=== PATIENT | female | born 1940 | race Caucasian/White ===

== ENCOUNTER 2016-07-26 09:29 | Emergency (ER) | payer MEDICARE ==
--- NOTE | 2016-07-26 10:58 | UC ---
Complaint Female HPI - HPI Summary HPI Summary: The patient comes in today for: 1. Fever, increasing confusion, increasing instability on feet (history of untreated metastatic colon cancer): Onset: 2 days. Palliative/provocative: Sleep and pain medication helps with pain (headache). Quality: Penetrating pain. Region: Retrobulbar (left) Severity: 3/10 Time: Constant. Associated symptoms: She has a history of "stage 4 colon cancer" which was diagnosed in December 292013. She sees her primary care provider [place]. She sees an oncologist in [place]. But, she has not seen her oncologist in a year. Headache (left retrobulbar) with changes in vision. Patient has been seen by primary care provider who has had an MRI ordered ( to be done) today at [facility]. She has no dysuria, but the daughter (Dr. De Dios) states that the last time she had this sort of thing, there was a UTI. Night sweats: onset in the last two days. Temperature: None taken at home. 100.8 today at urgent care. Urination: "Normal" light yellow. She has a MRI scheduled in [facility] in [place] at about 5 PM today. The daughter (a physician) states that there has been a significant worsening of her symptoms recently. * - History Of Current Complaint Chief Complaint: UCGeneralIllness Stated Complaint: FREQUENT URINATION Time Seen by Provider: 07/26/16 10:48 Hx Obtained From: Patient, Family/Mechanic Insulator Hx Last Menstrual Period: "years ago." ?: No - Allergies/Home Medications Allergies/Adverse Reactions: Allergies Allergy/AdvReac Type Severity Reaction Status Date / Time No Known Allergies Allergy Verified 04/14/15 08:53 Home Medications: Home Medications Homeopathic Detox 07/26/16 [History] Lisinopril TAB* [Prinivil TAB 5 MG*] 1 tab PO DAILY 07/26/16 [History Confirmed 07/26/16] Parotid Med 07/26/16 [History] Progesterone Micronized [Progesterone] 07/26/16 [History] oxyCODONE/Acetamin 5/325 MG* [Percocet 5/325 TAB*] 0.5 tab PO 07/26/16 [History] PMH/Surg Hx/FS Hx/Imm Hx Previously Healthy: No - Progesterone/estrogen-menopause, Parotid supplement, left hip pain. Endocrine History Of: Denies: Diabetes, Thyroid Disease, Hyperthyroidism, Hypothyroidism, Dyslipidemia Cardiovascular History Of: Reports: Cardiac Disorders - "History of Q waves on anteroseptal leads, but no follow-up.", Hypertension Denies: Pacemaker/ICD, Myocardial Infarction, Congestive Heart Failure, Atrial Fibrillation, Deep Vein Thrombosis, Bleeding Disorders Respiratory History Of: Denies: COPD, Asthma, Bronchitis, Pneumonia, Pulmonary Embolism GI/ History Of: Denies: Gastroesophageal Reflux, Ulcer, Gastrointestinal Bleed, Gall Bladder Disease, Kidney Stones, Diverticulitis, Renal Disease, Urosepsis Neurological History Of: Denies: TIA, CVA, Dementia, Seizures, Migraine Cancer History Of: Reports: Colorectal Cancer Denies: Lung Cancer, Breast Cancer, Prostate Cancer, Cervical Cancer - Surgical History Surgical History: Yes Surgery Procedure, Year, and Place: Colon Resection. Parital Hysterectomy - Family History Known Family History: Negative: Cardiac Disease, Hypertension, Diabetes - Social History Occupation: Unemployed Alcohol Use: None Substance Use Type: Prescribed Smoking Status (MU): Never Smoked Tobacco Review of Systems Constitutional: Fever Skin: Negative Eyes: Negative ENT: Negative Respiratory: Negative Cardiovascular: Negative Gastrointestinal: Negative Genitourinary: Negative All Other Systems Reviewed And Are Negative: Yes Physical Exam Triage Information Reviewed: Yes Appearance: No Pain Distress, Thin Vital Signs: Initial Vital Signs Temp 100.6 F 07/26/16 10:25 Pulse 97 07/26/16 10:25 Resp 16 07/26/16 10:25 Pulse Ox 96 07/26/16 10:25 BP 146/70 Vital Signs Reviewed: Yes Eyes: Positive: Conjunctiva Clear. Negative: Discharge ENT: Positive: Hearing grossly normal. Negative: Pharyngeal erythema, Nasal congestion, Nasal drainage, TM bulging, TM red, Tonsillar swelling, Tonsillar exudate Dental: Positive: Other: - Dentures in place.. Negative: Gross Decay/Caries @, Dental Fracture @ Neck: Positive: Supple, Nontender, No Lymphadenopathy. Negative: Nuchal Rigidity Respiratory: Positive: Chest non-tender, Lungs clear, No respiratory distress, No accessory muscle use. Negative: Crackles, Wheezing Cardiovascular: Positive: RRR, No Murmur Abdomen Description: Positive: Nontender, Soft, Hepatomegaly - The liver edge is below the right anterior rib margin--nodular?. Negative: Distended, Guarding , Splenomegaly Musculoskeletal: Positive: Strength Intact, ROM Intact, No Edema Neurological: Positive: Alert, Muscle Tone Normal Psychological: Positive: Normal Response To Family, Age Appropriate Behavior. Negative: Consolable Skin: Negative: rashes, breakdown Diagnostics - Laboratory Diagnostic Studies Completed/Ordered: Urine screen (dipstick). Specific gravity : 1.000. WBC: 25. Nitrite: (-). Blood: (-). Protein: 30. Glucose: unable to read. Ketones: (-). Urobilinogen: (-). Bilirubin: (-). Complaint Female Dx - Differential Dx/Diagnosis Differential Diagnosis/HQI/PQRI: Urinary Tract Infection, Other - meningitis [employer] metastatic disease. Provider Diagnoses: Headache, stage 4 colon cancer, fever, increasing instability in ambulation, increasing confusion. Discharge - Discharge Plan Condition: Stable Disposition: AGAINST MEDICAL ADVICE Referrals: No Primary Care Phys,NOPCP [Primary Care Provider] - Additional Instructions: If you are not going to the local ER via ambulance, please go to the [facility] ER as soon as you can as you stated you wanted to do. Melanie at the [facility] ([place]--[phone]) called and my note will be faxed to [phone].
[2016-07-26 11:05] VITALS: BP 146/70
== END 2016-07-26 12:01 | disposition left against medical advice (07) ==
LOC: UCEAST 09:29
DX: R51 Headache (principal); R50.9 Fever, unspecified; R26.89 Other abnormalities of gait and mobility; R41.0 Disorientation, unspecified; C18.9 Malignant neoplasm of colon, unspecified
CPT/HCPCS: 81002; 87086; 99212; G0463

== ENCOUNTER 2016-12-15 14:07 | Inpatient (IN) | payer MEDICARE ==
[2016-12-15] MEDS ORDERED: NS 0.9% 1000 ML* 1,000 ML IV ONE (15:41)
[2016-12-15 15:51] LABS: Add Diff/Slide Review? Slide Review Added; Comments Flag Yes; Hematocrit 36 % (35-47); Hemoglobin 11.4 g/dl (12.0-16.0); Mean Corpuscular HGB Conc 32 g/dl (31-36); Mean Corpuscular Hemoglobin 24 pg (27-31); Mean Corpuscular Volume 74 fL (80-97); Mean Platelet Volume 8 um3 (7.4-10.4); Red Blood Count 4.81 10^6/ul (4.0-5.4); Red Cell Distribution Width 17 % (10.5-15); White Blood Count 19.3 10^3/ul (3.5-10.8)
[2016-12-15 16:05] LABS: Albumin 3.6 g/dL (3.2-5.2); BUN/Creatinine Ratio 22.2 (8-20); Calcium 10.3 mg/dL (8.6-10.3); EGFR African American 118.8 (>60); EGFR Non-African American 92.4 (>60); Potassium 4.5 mmol/L (3.5-5.0); Total Bilirubin 0.7 mg/dL (0.2-1.0); Total Protein 7.6 g/dL (6.4-8.9)
[2016-12-15 16:08] LABS: Troponin I 0.02 ng/mL (<0.04)
[2016-12-15] MEDS ORDERED: NS 0.9% 1000 ML* 300 ML IV ONE (16:25)
--- NOTE | 2016-12-15 16:51 | RAD ---
Indication: Confusion. CT of the brain was performed without IV contrast. Ventricular structures are midline. No midline shift is noted. The extraction spaces are unremarkable. There is no definite intracranial mass or hemorrhage. Central and cortical atrophy is noted. Periventricular lucency consistent with chronic ischemic White matter change is noted. Mastoid air cells and paranasal sinuses are otherwise unremarkable. IMPRESSION: There is no evidence of intracranial mass or hemorrhage. Chronic ischemic White matter change is noted.
[2016-12-15 17:07] LABS: Urine Bilirubin Negative (Negative); Urine Glucose Negative (Negative); Urine Nitrite Negative (Negative)
--- NOTE | 2016-12-15 17:24 | RAD ---
Indication: Confusion. 2 views of the chest are reviewed. No prior study is available for comparison. Heart is of normal size and configuration. Lung vega appear clear. IMPRESSION: Hyperinflated lung vega without definite evidence of pneumonia.
[2016-12-15] MEDS ORDERED: Iohexol 300* (CONTRAST) 10 ML SDV IV ONE (17:56)
--- NOTE | 2016-12-15 18:00 | ED ---
Cris Hicks [place], scribed for Keily Kahn MD on 12/15/16 at 1508 . Psychiatric Complaint - HPI Summary HPI Summary: Patient is a 76 y/o F who presents to the ED with a psychiatric complaint. She states that she feels unsafe in her home as her neighbor has weapons. Pt denies hx of depression. However, pts PMHx is significant for CA and she has been in hospice care for some time. Hospice care reports that pt is paranoid. She has no other complaints. - History Of Current Complaint Time Seen by Provider: 12/15/16 14:12 Hx Obtained From: Patient Hx Last Menstrual Period: "years ago." Onset/Duration: Gradual Onset, Still Present Timing: Constant Severity Initially: Moderate Severity Currently: Moderate Character: Fearful Aggravating Factor(s): Nothing Alleviating Factor(s): Nothing Associated Signs And Symptoms: Positive: Paranoid Behavior - Allergies/Home Medications Allergies/Adverse Reactions: Allergies Allergy/AdvReac Type Severity Reaction Status Date / Time No Known Allergies Allergy Verified 04/14/15 08:53 PMH/Surg Hx/FS Hx/Imm Hx Endocrine/Hematology History: Denies: Hx Diabetes, Hx Thyroid Disease Cardiovascular History: Reports: Hx Hypertension Denies: Hx Congestive Heart Failure, Hx Deep Vein Thrombosis, Hx Myocardial Infarction, Hx Pacemaker/ICD Respiratory History: Denies: Hx Asthma, Hx Chronic Obstructive Pulmonary Disease (COPD), Hx Lung Cancer, Hx Pneumonia, Hx Pulmonary Embolism GI History: Denies: Hx Gall Bladder Disease, Hx Gastrointestinal Bleed, Hx Ulcer, Hx Urosepsis History: Denies: Hx Kidney Stones, Hx Renal Disease Neurological History: Denies: Hx Dementia, Hx Migraine, Hx Seizures, Hx Transient Ischemic Attacks (TIA) - Cancer History Cancer Type, Location and Year: Hx colon W/ LIVER INVOLVEMENT - Surgical History Surgery Procedure, Year, and Place: Colon Resection. Parital Hysterectomy Infectious Disease History: No Infectious Disease History: Denies: Traveled Outside the [place] in Last 30 Days - Family History Known Family History: Negative: Cardiac Disease, Hypertension, Diabetes - Social History Alcohol Use: None Substance Use Type: Reports: None Smoking Status (MU): Never Smoked Tobacco Review of Systems Negative: Fever Positive: Other - Fearful. Paranoid. All Other Systems Reviewed And Are Negative: Yes Physical Exam Triage Information Reviewed: Yes Vital Signs On Initial Exam: Initial Vitals Temp Pulse Resp BP Pulse Ox 97.7 F 96 20 151/65 98 12/15/16 14:29 12/15/16 14:29 12/15/16 14:29 12/15/16 14:29 12/15/16 14:29 Vital Signs Reviewed: Yes Appearance: Positive: No Pain Distress, Cachectic Skin: Positive: Warm, Skin Color Reflects Adequate Perfusion, Dry Eyes: Positive: EOMI, ASTON Neck: Positive: Supple, Nontender Respiratory/Lung Sounds: Positive: Clear to Auscultation, Breath Sounds Present. Negative: Rales, Rhonchi, Wheezes Cardiovascular: Positive: RRR. Negative: Murmur, Rub Abdomen Description: Positive: Nontender, Soft. Negative: Distended, Guarding Musculoskeletal: Positive: Strength/ROM Intact Neurological: Positive: Sensory/Motor Intact, Alert, Oriented to Person Place, Time, CN Intact II-III Psychiatric: Positive: Other - Paranoid. Diagnostics - Vital Signs Vital Signs Temp Pulse Resp BP Pulse Ox 12/15/16 14:29 97.7 F 96 20 151/65 98 - Laboratory Lab Results: Lab Results 12/15/16 12/15/16 12/15/16 Range/Units 15:40 15:40 15:40 WBC 19.3 H (3.5-10.8) 10^3/ul RBC 4.81 (4.0-5.4) 10^6/ul Hgb 11.4 L (12.0-16.0) g/dl Hct 36 (35-47) % MCV 74 L (80-97) fL MCH 24 L (27-31) pg MCHC 32 (31-36) g/dl RDW 17 H (10.5-15) % Plt Count 448 (150-450) 10^3/ul MPV 8 (7.4-10.4) um3 Neut % (Auto) 82.6 (38-83) % Lymph % (Auto) 6.6 L (25-47) % [place] % (Auto) 9.7 H (1-9) % Eos % (Auto) 0.4 (0-6) % Baso % (Auto) 0.7 (0-2) % Absolute Neuts (auto) 15.9 H (1.5-7.7) 10^3/ul Absolute Lymphs (auto) 1.3 (1.0-4.8) 10^3/ul Absolute Monos (auto) 1.9 H (0-0.8) 10^3/ul Absolute Eos (auto) 0.1 (0-0.6) 10^3/ul Absolute Basos (auto) 0.1 (0-0.2) 10^3/ul Absolute Nucleated RBC 0 10^3/ul Nucleated RBC % 0 Sodium 128 L (133-145) mmol/L Potassium 4.5 (3.5-5.0) mmol/L Chloride 91 L (101-111) mmol/L Carbon Dioxide 26 (22-32) mmol/L Anion Gap 11 (2-11) mmol/L BUN 14 (6-24) mg/dL Creatinine 0.63 (0.51-0.95) mg/dL Est GFR ( Amer) 118.8 (>60) Est GFR (Non-Af Amer) 92.4 (>60) BUN/Creatinine Ratio 22.2 H (8-20) Glucose 82 (70-100) mg/dL Lactic Acid (0.5-2.0) mmol/L Calcium 10.3 (8.6-10.3) mg/dL Total Bilirubin 0.70 (0.2-1.0) mg/dL AST 74 H (13-39) U/L ALT 26 (7-52) U/L Alkaline Phosphatase 459 H (34-104) U/L Ammonia 54 H (16-53) mol/L Troponin I 0.02 (<0.04) ng/mL Total Protein 7.6 (6.4-8.9) g/dL Albumin 3.6 (3.2-5.2) g/dL Globulin 4.0 (2-4) g/dL Albumin/Globulin Ratio 0.9 L (1-3) TSH (0.34-5.60) mcIU/mL Urine Color Urine Appearance Urine pH (5-9) Ur Specific [place] (1.010-1.030) Urine Protein (Negative) Urine Ketones (Negative) Urine Blood (Negative) Urine Nitrate (Negative) Urine Bilirubin (Negative) Urine Urobilinogen (Negative) Ur Leukocyte Esterase (Negative) Urine Glucose (Negative) 12/15/16 12/15/16 12/15/16 Range/Units 15:40 15:40 16:50 WBC (3.5-10.8) 10^3/ul RBC (4.0-5.4) 10^6/ul Hgb (12.0-16.0) g/dl Hct (35-47) % MCV (80-97) fL MCH (27-31) pg MCHC (31-36) g/dl RDW (10.5-15) % Plt Count (150-450) 10^3/ul MPV (7.4-10.4) um3 Neut % (Auto) (38-83) % Lymph % (Auto) (25-47) % [place] % (Auto) (1-9) % Eos % (Auto) (0-6) % Baso % (Auto) (0-2) % Absolute Neuts (auto) (1.5-7.7) 10^3/ul Absolute Lymphs (auto) (1.0-4.8) 10^3/ul Absolute Monos (auto) (0-0.8) 10^3/ul Absolute Eos (auto) (0-0.6) 10^3/ul Absolute Basos (auto) (0-0.2) 10^3/ul Absolute Nucleated RBC 10^3/ul Nucleated RBC % Sodium (133-145) mmol/L Potassium (3.5-5.0) mmol/L Chloride (101-111) mmol/L Carbon Dioxide (22-32) mmol/L Anion Gap (2-11) mmol/L BUN (6-24) mg/dL Creatinine (0.51-0.95) mg/dL Est GFR ( Amer) (>60) Est GFR (Non-Af Amer) (>60) BUN/Creatinine Ratio (8-20) Glucose (70-100) mg/dL Lactic Acid 1.8 (0.5-2.0) mmol/L Calcium (8.6-10.3) mg/dL Total Bilirubin (0.2-1.0) mg/dL AST (13-39) U/L ALT (7-52) U/L Alkaline Phosphatase (34-104) U/L Ammonia (16-53) mol/L Troponin I (<0.04) ng/mL Total Protein (6.4-8.9) g/dL Albumin (3.2-5.2) g/dL Globulin (2-4) g/dL Albumin/Globulin Ratio (1-3) TSH 7.69 H (0.34-5.60) mcIU/mL Urine Color Yellow Urine Appearance Cloudy Urine pH 7.0 (5-9) Ur Specific [place] 1.010 (1.010-1.030) Urine Protein Negative (Negative) Urine Ketones Trace H (Negative) Urine Blood Negative (Negative) Urine Nitrate Negative (Negative) Urine Bilirubin Negative (Negative) Urine Urobilinogen Negative (Negative) Ur Leukocyte Esterase Negative (Negative) Urine Glucose Negative (Negative) Result Diagrams: 12/15/16 15:40 12/15/16 15:40 Lab Statement: Any lab studies that have been ordered have been reviewed, and results considered in the medical decision making process. - Radiology CXR Radiology Interpretation Completed By: Radiologist - IMPRESSION: Hyperinflated lung vega without definite evidence of pneumonia. - CT BRAIN CT Interpretation Completed By: Radiologist - IMPRESSION: There is no evidence of intracranial mass or hemorrhage. Chronic ischemic White matter change is noted. - Additional Comments Diagnostic Additional Comments: Trop 1: 0.02 Ur Leukocytes Esteras: negative Urine Blood: negative Re-Evaluation - Re-Evaluation First Eval Re-Evaluation Time: 15:15 Comment: Discussed case. Course/Dx - Course Course Of Treatment: 76 yo female with pre occupation that neighbor is a drug dealer with ammunition stored in his home. Pt has history of colon ca metastatic to liver. Her wbc is 19k, but urine and cxr are neg,she will be admitted by medicine, case discussed with Dr. Barrera. - Differential Dx/Clinical Impression Provider Diagnosis: Psychosis - Physician Notifications Discussed Care Of Patient With: Lolis Barrera Time Discussed With Above Provider: 15:05 Instructed by Provider To: Admit As Inpatient Admit/Transition Orders Completed By ED Provider: Yes Discharge - Discharge Plan Condition: Stable Disposition: ADMITTED TO [facility] Referrals: Non Staff,Doctor [Primary Care Provider] - The documentation as recorded by the Cris bowens [place] accurately reflects the service I personally performed and the decisions made by me, Keily Kahn MD.
--- NOTE | 2016-12-15 18:51 | RAD ---
Indication: Paranoid behavior. Evaluate for brain metastasis, history of colon carcinoma. Contrast: Administered 74.9 ml of OMNIPAQUE 300 mgi/ml CT of the brain was performed after IV contrast administration. There is no evidence of abnormally enhancing lesions. No leptomeningeal enhancement is noted. Prominent vasculature is noted. IMPRESSION: No evidence of abnormally enhancing lesions are identified.
[2016-12-16] MEDS: NS 0.9% 1000 ML* 1,000 ML IV SCH ×2 (04:40→16:23)
[2016-12-16 05:41] LABS: Hematocrit 34 % (35-47); Hemoglobin 10.8 g/dl (12.0-16.0); Mean Corpuscular HGB Conc 32 g/dl (31-36); Mean Corpuscular Hemoglobin 24 pg (27-31); Mean Platelet Volume 8 um3 (7.4-10.4); Red Blood Count 4.54 10^6/ul (4.0-5.4); Red Cell Distribution Width 17 % (10.5-15); White Blood Count 18.8 10^3/ul (3.5-10.8)
[2016-12-16 05:44] LABS: Add Diff/Slide Review? Slide Review Added; Comments Flag Yes; Mean Corpuscular Volume 74 fL (80-97)
[2016-12-16 05:54] LABS: Albumin 3.4 g/dL (3.2-5.2); BUN/Creatinine Ratio 21.9 (8-20); Calcium 9.9 mg/dL (8.6-10.3); EGFR African American 116.7 (>60); EGFR Non-African American 90.7 (>60); Globulin 3.7 g/dL (2-4); Potassium 4.4 mmol/L (3.5-5.0); Total Bilirubin 0.5 mg/dL (0.2-1.0); Total Protein 7.1 g/dL (6.4-8.9)
[2016-12-16] MEDS ORDERED: Iohexol 300* (CONTRAST) 10 ML SDV IV ONE (08:13)
--- NOTE | 2016-12-16 09:56 | RAD ---
Indication: Abnormal liver enzymes. Contrast: Administered 52.2 ml of OMNIPAQUE 300 mg/ml CT of the abdomen and pelvis was performed without oral or IV contrast administration. Coronal and sagittal reconstructed images were obtained. The lung bases demonstrates multiple nodules in the lung bases consistent with pulmonary metastasis. The heart demonstrates no pericardial effusion. The liver is enlarged. Multiple low density lesions are noted in the liver. The portal veins are not well demonstrated and the possibility of compression or thrombosis of the right portal vein is not excluded. Ascites is present. The spleen is normal in size. Pancreas demonstrates no mass or pancreatic duct dilatation. No adrenal lesions are noted. There is excretion of the right kidney. The left kidney demonstrates hydronephrosis. There is atrophy of the left kidney and this may be chronic process. No obvious calculi is noted. Small bowel demonstrates no abnormal dilatation. The colon is filled with stool. The urinary bladder is otherwise unremarkable. Moderate amount of ascites and anasarca is noted. There is suggestion of multiple peritoneal metastases noted with nodularity in the left lower quadrant just below the liver. IMPRESSION: Multiple pulmonary nodules consistent with pulmonary metastatic disease. This is predominantly in the right base. Hepatomegaly with multiple innumerable low density lesions in the liver consistent with metastatic disease. Right portal vein is not visualized. Possibility of right portal vein compression or thrombus is not excluded. Multiple peritoneal metastasis are noted with multiple omental nodules. Diffuse edema is noted with small amount of free fluid in the pelvis. There is left hydronephrosis. Etiology is unclear. There is atrophic left kidney suggesting that this may be chronic.
--- NOTE | 2016-12-16 14:32 | PN ---
Subjective Date of Service: 12/16/16 Interval History: Patient seen and examined at bedside. Denies fever, chills, shortness of breath , chest discomfort, N/V/D. According to the patient she feels that her daughter's significant other has been building a milita to come and attack her. She reports that she was trying to "hid in the oven" because she was unsure where else she could hid. The patient also thinks that her daughter just returned from delivering drugs out of town with her significant other. According to the patient's daughter anders there has been long standing issues with her mother trusting the significant others in her life, but it has gotten worse recently. Family History: Unchanged from Admission Social History: Unchanged from Admission Past Medical History: Unchanged from Admission Objective Active Medications: Sodium Chloride (Ns 0.9% 1000 Ml*) 1,000 mls @ 100 mls/hr IV PER RATE AVERY Vital Signs 12/16/16 12/16/16 12/16/16 05:26 07:36 08:00 Temperature 97.8 F 97.8 F Pulse Rate 99 97 Respiratory 16 16 16 Rate Blood Pressure 155/73 155/68 (mmHg) O2 Sat by Pulse 96 97 Oximetry Oxygen Devices in Use Now: None Appearance: NAD, sitting up in a chair Eyes: No Scleral Icterus Neck: NL Appearance and Movements; NL JVP Respiratory: Symmetrical Chest Expansion and Respiratory Effort, Clear to Auscultation Cardiovascular: NL Sounds; No Murmurs; No JVD, RRR Abdominal: NL Sounds; No Tenderness; No Distention Extremities: No Edema Skin: No Rash or Ulcers Neurological: Alert and Oriented x 3, NL Muscle Strength and Tone, - - Paranoid Lines/Tubes/Other Access: Clean, Dry and Intact Peripheral IV - site benign Nutrition: Taking PO's Result Diagrams: 12/16/16 05:19 12/16/16 05:19 Assess/Plan/Problems-Billing Assessment: Ms. De Dios is a 76 yo female with PMH significant for metastatic colon cancer who presented to the emergency room for evaluation of paranoia. - Patient Problems (1) Altered mental status Code(s): R41.82 - ALTERED MENTAL STATUS, UNSPECIFIED SNOMED Code(s): 679461171 Comment: - ? Psychosis - No mets seen on brain CT - Psychiatric consult pending (2) Colon cancer Comment: - with liver, lung and peritoneal mets - Pt was on hospice services until presentation to the hospital - Social work consult (3) DVT prophylaxis Code(s): XOZ1294 - SNOMED Code(s): 503887895 Comment: - Pt refusing medications, encourage ambulation (4) DNR (do not resuscitate) Status and Disposition: OBV. Psychiatric evaluation pending. Discharge when medically stable. TIME SPENT: A total of 60 minutes was spent with the patient and daughter Anders discussing her history and plan of care.
--- NOTE | 2016-12-16 14:33 | HP ---
HISTORY AND PHYSICAL: DATE OF ADMISSION: 12/16/16 CHIEF COMPLAINT: Daughter was concerned about her mother's mental status. HISTORY OF PRESENT ILLNESS: The patient is a 76-year-old woman with metastatic colon cancer who presents to [facility] after her daughter wanted her to be seen because of concerns about her mother's mental status. Apparently , the mother thinks the neighbor has been harboring weapons and is out to get her, but she will not confide that to us at this time. She does note that she has a history of colon cancer with metastasis and had a hemicolectomy done approximately 2 years ago for same. She refused all chemotherapy and only wants alternative holistic therapies. The patient admits she has pain but thinks it is getting better with holistic therapies. PAST MEDICAL HISTORY: The patient does have a past medical history significant for obstructive sigmoid colon resection, colon cancer with metastasis to the liver. She denies any other medical history. CURRENT MEDICATIONS: Currently include, 1. Percocet 5/325 every 4 hours which she does not take. 2. Magnesium 1 dose daily. 3. Sodium bicarbonate daily. ALLERGIES: She has no known drug allergies. FAMILY HISTORY: Reviewed and noncontributory. SOCIAL HISTORY: No tobacco, alcohol or recreational drug use. She does not work. She is . Her daughters Isabella De Dios and Pamela De Dios are her healthcare proxies. REVIEW OF SYSTEMS: A 14-point review of systems was completed with the patient. All pertinent positives and negatives are in the history of present illness, otherwise it is negative. PHYSICAL EXAMINATION GENERAL: A pleasant woman lying in bed, in no acute distress. VITAL SIGNS: Temperature 97.4 degrees, heart rate 103 beats per minute, respiratory rate 16 breaths per minute, pulse ox 97%, blood pressure 135/63. HEENT: Normocephalic, atraumatic. Pupils are equal, round and reactive to light. Moist mucous membranes. NECK: Supple. No JVD, bruits, palpable thyroid or lymphadenopathy. CHEST: Clear to auscultation and percussion bilaterally. CARDIOVASCULAR: S1, S2 appreciated. ABDOMINAL EXAM: Positive bowel sounds in all 4 quadrants. Soft, nontender, nondistended. EXTREMITIES: No cyanosis, clubbing or edema. +2 peripheral pulses bilaterally. NEURO: Alert and oriented x3. Moves all extremities. SKIN: No rashes or abnormalities. DIAGNOSTIC STUDIES/LAB DATA: White count 19.3, hemoglobin , hematocrit 36 , platelets 448. Sodium is 128, potassium 4.5, chloride 91, CO2 26, BUN 14, creatinine 0.63, glucose is 82. Alk phos 459, ammonia level 54, AST 34, ALT 26. Urinalysis is unremarkable. Brain CT shows no evidence of abnormalities or enhancing lesions that are identified, no ischemic intracranial mass or hemorrhage. Chest x-ray was interpreted by Radiology as hyperinflated lung vega without definite of pneumonia. ASSESSMENT AND PLAN: 1. Questionable mental status changes or psychosis. Patient was going to go to mental [facility] for this, but there were concerns about the ability to care for her other medical needs. Therefore, the patient is being admitted to Medical with a psychiatric consult. She does not have any evidence of brain mets. It is unknown except at this point how long she has had these paranoid thoughts. We will get more information when the daughter comes in and proceed accordingly. 2. Colon cancer with mets. The patient was apparently on hospice and took herself off. This needs to be looked into further. I will also get a social work consult. 3. FEN. Regular diet. 4. DVT prophylaxis on hold as the patient refuses medications. 5. The patient is a full code. This needs to be followed up on, however, since she was on hospice. TIME SPENT: Over 75 minutes was spent on this H and P, more than 40 minutes of which was spent in direct [id number] contact with the patient in evaluation, physical exam, and counseling and coordination of care. CC: Dr. Nesha Phipps [place] [id number]/[facility] #: [id number] [facility]ENTER[facility]ay
[2016-12-17] MEDS: NS 0.9% 1000 ML* 1,000 ML IV SCH ×2 (02:36→12:26)
[2016-12-17 06:22] LABS: Hematocrit 34 % (35-47); Hemoglobin 10.8 g/dl (12.0-16.0); Mean Corpuscular HGB Conc 32 g/dl (31-36); Mean Corpuscular Hemoglobin 24 pg (27-31); Mean Corpuscular Volume 75 fL (80-97); Mean Platelet Volume 8 um3 (7.4-10.4); Red Cell Distribution Width 17 % (10.5-15); White Blood Count 20.2 10^3/ul (3.5-10.8)
[2016-12-17 06:53] LABS: BUN/Creatinine Ratio 15.5 (8-20); Calcium 9.3 mg/dL (8.6-10.3); EGFR African American 130.7 (>60); EGFR Non-African American 101.6 (>60); Potassium 3.7 mmol/L (3.5-5.0)
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
--- NOTE | 2016-12-17 20:19 | PN ---
Subjective Date of Service: 12/17/16 Interval History: Patient seen and examined at bedside. Pt states that she feels well today but is disappointed that no one believes what she is saying about the threats to her. She also states that she understands that because of that she will need to "be committed". Denies fever, chills, shortness of breath, chest discomfort, N/V /D. Pt states that she feels as if she is in an acidosis and would like to return to an alkaline state and would like to continue to take her sodium bicab and magnesium that assists with that. Family History: Unchanged from Admission Social History: Unchanged from Admission Past Medical History: Unchanged from Admission Objective Active Medications: Magnesium Oxide (Magox 400 Tab*) 400 mg PO DAILY [facility] Vital Signs 12/16/16 12/17/16 12/17/16 23:34 03:51 07:24 Temperature 98.7 F 98.7 F 98.1 F Pulse Rate 94 95 88 Respiratory 16 16 16 Rate Blood Pressure 144/61 154/74 145/62 (mmHg) O2 Sat by Pulse 93 91 95 Oximetry 12/17/16 16:23 Temperature 98.2 F Pulse Rate 96 Respiratory 16 Rate Blood Pressure 156/75 (mmHg) O2 Sat by Pulse 96 Oximetry Oxygen Devices in Use Now: None Appearance: NAD, sitting up in a chair Ears/Nose/Mouth/Throat: Mucous Membranes Moist Respiratory: Symmetrical Chest Expansion and Respiratory Effort, Clear to Auscultation Cardiovascular: NL Sounds; No Murmurs; No JVD, RRR Abdominal: NL Sounds; No Tenderness; No Distention Extremities: No Edema Skin: No Rash or Ulcers Neurological: Alert and Oriented x 3, NL Muscle Strength and Tone Lines/Tubes/Other Access: Clean, Dry and Intact Peripheral IV - site benign Nutrition: Taking PO's Result Diagrams: 12/17/16 05:40 12/17/16 05:40 Additional Lab and Data: Assess/Plan/Problems-Billing Assessment: Ms. De Dios is a 76 yo female with PMH significant for metastatic colon cancer who presented to the emergency room for evaluation of paranoia. - Patient Problems (1) Altered mental status Code(s): R41.82 - ALTERED MENTAL STATUS, UNSPECIFIED SNOMED Code(s): 065236531 Comment: - ? Psychosis - No mets seen on brain CT - Psychiatric consult, recommend admission to mental health (2) Colon cancer Comment: - with liver, lung and peritoneal mets - Pt was on hospice services until presentation to the hospital - Social work consult (3) DVT prophylaxis Code(s): DEJ3808 - SNOMED Code(s): 943755936 Comment: - Pt refusing medications, encourage ambulation (4) DNR (do not resuscitate) Status and Disposition: OBV to Inpatient. Plan for discharge to behavioral health (either here or another facility) once arrangements have been made. Stable for discharge to behavioral health.
[2016-12-18] MEDS: Magnesium Oxide TAB* 400 MG PO SCH (08:32)
--- NOTE | 2016-12-18 10:14 | PN ---
Subjective Date of Service: 12/18/16 Family History: Unchanged from Admission Social History: Unchanged from Admission Past Medical History: Unchanged from Admission Objective Active Medications: Magnesium Oxide (Magox 400 Tab*) 400 mg PO DAILY [facility] Vital Signs 12/17/16 12/18/16 23:35 07:56 Temperature 98.0 F 97.7 F Pulse Rate 101 104 Respiratory 16 16 Rate Blood Pressure 127/103 168/75 (mmHg) O2 Sat by Pulse 97 98 Oximetry Oxygen Devices in Use Now: None Appearance: Female sitting up in chair in NAD Eyes: No Scleral Icterus Ears/Nose/Mouth/Throat: Mucous Membranes Moist Neck: NL Appearance and Movements; NL JVP Respiratory: Symmetrical Chest Expansion and Respiratory Effort, Clear to Auscultation Cardiovascular: NL Sounds; No Murmurs; No JVD, No Edema Abdominal: NL Sounds; No Tenderness; No Distention Lymphatic: No Cervical Adenopathy Extremities: No Edema Skin: No Rash or Ulcers Neurological: Alert and Oriented x 3, NL Muscle Strength and Tone Nutrition: Taking PO's Result Diagrams: 12/17/16 05:40 12/17/16 05:40 Additional Lab and Data: Assess/Plan/Problems-Billing Assessment: Ms. De Dios is a 76 yo female with PMH significant for metastatic colon cancer who presented to the emergency room for evaluation of paranoia. - Patient Problems (1) Altered mental status Comment: ? Psychosis. Leukocytosis unchanged no evidence of infection, ? if related to cancer. No mets seen on brain CT. Psychiatric consult, recommend admission to mental health. (2) Colon cancer Comment: With liver, lung and peritoneal mets. Pt was on hospice services until presentation to the hospital. Plan for MHU admission and to likely return home with hospice. (3) DNR (do not resuscitate) Comment: (4) DVT prophylaxis Comment: Pt refusing medications, encourage ambulation Status and Disposition: Inpatient. Stable for discharge to behavioral health.
--- NOTE | 2016-12-18 16:23 | CONSULT ---
Identification - Patient Identification Reason for Psychiatric Consultation: Incapacitating Symptoms -: Patient is a 76 year old, F admitted on 12/17/16. - MHU Identification Employment Status: Disabled Hx Psychiatric Hospitalization: No History - Objective HPI: The patient remains paranoid and suspicious, as evidenced by her refusal today to answer any questions related to her situation, or where she will go from here. She continues to meet criteria for inpatient psychiatric hospitalization , however, it is my understanding that the BSU here at [facility] is [id number] for her managed Medicare plan. I spoke with her daughter, Melanie, who shares the family's preference that she not be transferred out of town because her end- of-life status. Administrative staff have been working on whether the patient could be re-enrolled in Hospice and have that entity support inpatient hospitalization on the BSU. The patient denies SI or HI. Exam Appearance: Thin Framed Hygiene: Normal Grooming: Well Kept Psychomotor Activities: Normal Exhibits Abnormal Movement: No Attitude and Relatedness: Psychotically Related Eye Contact: Good - Speech Quality: Unpressured Latencies: Normal Quantity: Terse Patient's Decription of Mood: "Fine" Observed Affect: Tense Affect Consistent with: Dysphoria Patient's Thought Process: Circumstantial Thought Content: Yes Paranoid Ideation, No Passive Wish, No Suicidal Planning, No Homicidal Ideation Experiencing Hallucinations: No, Sensorium is Clear Type of Hallucinations: Visual: No, Auditory: No, Command: No Level of Consciousness: Alert Orientation: Yes Intact, Yes Orientated to Time, Yes Orientated to Place, Yes Orientated to Person Impulse Control: Poor Insight and Judgement: Impaired Impression - Impression Clinical Impression: 76 y.o. , white female with a history of affective problems and comorbid end-stage colon cancer hospitalized on the medical unit due to several weeks of worsening paranoia and inability to keep herself safe in the community. Inpatient DSM-IV Dx: Unspecified Psychotic DO Merits Inpatient Hospitalization: Yes Plan - Treatment Plan Treatment Plan: The patient is refusing antipsychotic medication and disagrees with this clinician's assertion that she has mental illness. She remains appropriate for inpatient psychiatric stabilization, however, we are sympathetic to the end-of- life, palliative dimensions of her case and would like to accommodate the family 's preferences to see her receive care locally. We await administrative considerations related to insurance coverage and patient/family preference and will revisit the case tomorrow (12/19). Continued Medication Management: Consider Medication Medications: Current Medications Magnesium Oxide (Magox 400 Tab*) 400 mg PO DAILY [facility] Last Admin: 12/18/16 08:32 Dose: 400 mg - Discharge Plan Discharge Plan: Inpatient Hospitalization
[2016-12-18] MEDS: amLODIPine TAB* 5 MG ONE ×2 (21:29→21:36)
[2016-12-18] MEDS: amLODIPine TAB* 5 MG PO SCH (21:36)
[2016-12-19] MEDS: Magnesium Oxide TAB* 400 MG PO SCH (07:45)
[2016-12-19] MEDS: amLODIPine TAB* 5 MG PO SCH (07:45)
[2016-12-19] MEDS ORDERED: Morphine ORAL CONCENTRATE* 5 MG/0.25 ML ORAL.SYRIN SL PRN ×3 (10:50→21:00)
--- NOTE | 2016-12-19 13:31 | PN ---
Subjective Date of Service: 12/19/16 Interval History: Ms. De Dios reports abdominal pain but does not want any analgesics. She denies other complaint. Family History: Unchanged from Admission Social History: Unchanged from Admission Past Medical History: Unchanged from Admission Objective Active Medications: Amlodipine Besylate (Norvasc Tab*) 5 mg PO DAILY [facility] Last Admin: 12/19/16 07:45 Dose: Not Given Magnesium Oxide (Magox 400 Tab*) 400 mg PO DAILY [facility] Last Admin: 12/19/16 07:45 Dose: Not Given Morphine Sulfate (Morphine Oral Concentrate*) 2 mg SL Q2H PRN PRN Reason: PAIN Vital Signs 12/18/16 12/18/16 12/18/16 15:30 19:30 21:37 Temperature 98.2 F 98.0 F Pulse Rate 110 99 Respiratory 16 16 16 Rate Blood Pressure 165/79 170/83 (mmHg) O2 Sat by Pulse 98 99 Oximetry 12/18/16 12/19/16 12/19/16 23:24 07:28 08:00 Temperature 98.0 F 98.0 F Pulse Rate 104 94 Respiratory 16 17 16 Rate Blood Pressure 143/70 151/73 (mmHg) O2 Sat by Pulse 96 96 Oximetry 12/19/16 11:21 Temperature 97.6 F Pulse Rate 97 Respiratory 17 Rate Blood Pressure 146/70 (mmHg) O2 Sat by Pulse 93 Oximetry Oxygen Devices in Use Now: None Appearance: Female sitting up in bed in NAD Eyes: No Scleral Icterus Ears/Nose/Mouth/Throat: Mucous Membranes Moist Neck: Trachea Midline Respiratory: Symmetrical Chest Expansion and Respiratory Effort, Clear to Auscultation Cardiovascular: NL Sounds; No Murmurs; No JVD, No Edema Abdominal: - - Pt c/o lower abdominal pain Lymphatic: No Cervical Adenopathy Extremities: No Edema Skin: No Rash or Ulcers Neurological: Alert and Oriented x 3, NL Muscle Strength and Tone Nutrition: Taking PO's Result Diagrams: 12/17/16 05:40 12/17/16 05:40 Additional Lab and Data: Assess/Plan/Problems-Billing Assessment: Ms. De Dios is a 76 yo female with PMH significant for metastatic colon cancer who presented to the emergency room for evaluation of paranoia. - Patient Problems (1) Altered mental status Comment: ? Psychosis. Leukocytosis unchanged no evidence of infection, ? if related to cancer. No mets seen on brain CT. Psychiatric consult, recommend admission to mental health. (2) Colon cancer Comment: With liver, lung and peritoneal mets. Pt was on hospice services until presentation to the hospital. Palliative care team to discuss disposition plan with family again today, MHU vs home. (3) DNR (do not resuscitate) (4) DVT prophylaxis Comment: Pt refusing medications, encourage ambulation Status and Disposition: Inpatient. Awaiting disposition plan, patient may go to MHU.
--- NOTE | 2016-12-19 14:22 | CONS ---
CC: Nesha Phipps M.D.; Alley Palacios NP. * PALLIATIVE CARE CONSULTATION: DATE OF CONSULT: 12/19/16 PRIMARY CARE PHYSICIAN: Nesha Phipps M.D. REFERRING PHYSICIAN: Alley Palacios NP. HOSPITAL COURSE: This is a 76-year-old female with a past medical history of metastatic colon cancer with metastasis known to the lung, liver and peritoneum , who presented to the emergency room on the with concern for the mother's mental status. The daughter, Melanie, brought the patient into the emergency room as there was concern for her mental status and behavior. My history is obtained from the notes, the patient and the other daughter, Isabella who lives in [place]. The patient of note has a significant history of mental health disorder with anxiety, depression, suicidal attempts, who had been at home with hospice, but had been a challenging situation and who had worsened over the past several days prior to admission. The daughter states that she did not want hospice coming into the house regularly. She would put a lock on the door and lock out the daughters, so they could not come in. She did not want more help with meals and care for her. She refused all chemotherapy and wanted a holistic treatment. On my encounter, the patient states she does have 4/10 abdominal pain. She states she does not take medicine for this, but she manages to herself; when asked how, she says on a [employer] level. I asked if she knew where she was, she did not. I asked if she knew why she was here, she did not. She denies any nausea. No shortness of breath. She states she has had a very poor appetite and not moving her bowels regularly. The daughter, Isabella, has been concerned about her care at home in the setting of her mental health and her end-stage colon cancer. Because of her paranoia, Psychiatry was consulted, who felt that she was having increasing psychotic behavior and felt she was unable to care for herself and was not safe to be discharged to home. Psychiatry felt that she would benefit from a psychiatric hospitalization and start her on medication for her paranoia. The patient has been refusing olanzapine that was prescribed by Psychiatry on the hospital floor. My concern is that the patient lacks capacity to make medical decisions for herself that she has end-stage colon cancer with metastasis, with the pain and would not benefit from admission to the mental health floor. I spoke my concerns with Isabella regarding a safe discharge plan to either a residential with hospice or the residence with hospice and to work with her. The patient to discuss that it is not medication, that it may be considered a supplement to help with her pain if she is presenting with significant amount of pain as she clearly does not have the capacity to manage her pain appropriately. The daughter was agreeable to this plan. She was going to call her sister Melanie to confirm that this was a reasonable plan for her care. We also discussed the MOLST at length and she has confirmed that she is a DNR/DNI with no further rehospitalization. Otherwise, remaining review of systems is limited, but negative. PAST MEDICAL HISTORY: 1. Metastatic colon cancer with metastasis to the lung, liver, peritoneal, and omentum. 2. Question of a right portal vein thrombus. 3. History of a partial bowel resection. 4. Anxiety, depression with history of suicidal attempts in the past. INPATIENT MEDICATIONS: 1. Magnesium 400 mg daily. 2. Amlodipine 5 mg daily. The patient has refused taking these medications. ALLERGIES: No known drug allergies. FAMILY HISTORY: Reviewed and noncontributory. SOCIAL HISTORY: The patient was living at home. Her house is attached to her daughter's house Melanie. She was ambulating up until about a week ago and now is requiring ambulation with assistance. No history of tobacco, alcohol, or illicit drug use. Her MOLST form prior to my consultation was a full code. Her healthcare proxies are her daughters, Isabella De Dios, and Melanie De Dios. Phone number for Isabella is [phone], and for Melanie is [phone]. REVIEW OF SYSTEMS: As mentioned in the HPI. PHYSICAL EXAM: Vitals: Temp 98, pulse rate 94, respiratory rate 17, oxygen saturation 96% on room air, and blood pressure 151/73. General: Frail cachectic female in no acute distress. Pupils equal and reactive, anicteric. Head is normocephalic. Oropharynx, mucous membranes are dry. Neck is supple. No adenopathy. Cardiac: Regular rate and rhythm. Soft systolic murmur heard. Respiratory: Diminished breath sounds. No wheezes, rhonchi, or rales. Abdomen : Hypoactive bowel sounds, mild distention, mildly firm with generalized tenderness. No rebound or guarding. Extremities: +1 pretibial edema. Neurologic: Alert and oriented x1, oriented to self only. LABORATORY DATA: White count 20, hemoglobin 10, hematocrit 34, platelets 423. Sodium 130, potassium 3.7, chloride 97, BUN 9, creatinine 0.58. RADIOGRAPHIC DATA: Abdomen and pelvic CT shows multiple pulmonary nodules consistent with pulmonary metastatic disease. This was predominantly in the right base. Hepatomegaly with multiple innumerable low density lesions in the liver consistent with metastatic disease. Right portal vein is not visualized, possibility of the right portal vein compression or thrombus is not excluded. Multiple peritoneal metastases are noted with multiple omental nodules, diffuse edema is noted with small amount of free fluid in the pelvis. There is left hydronephrosis. ASSESSMENT: This is a 76-year-old female with past medical history of metastatic colon cancer, who was on hospice prior to admission, now has been admitted for altered mental status and paranoia. Psychiatry was involved as well and felt that she was not safe to be discharge to home, does not have the capacity to make her own medical decisions. I agree that the patient does not have the capacity to make her own decisions at this time. It is unclear if this is related to encephalopathy from her liver mets. She has no confirmed metastasis to her brain, although we do not have an MRI done for her or if this is related to her history of mental health disorder. I do not think that the patient should be managing her pain, which is via [employer]. I think we should figure out a way to allow her to take pain medication to relief her pain and allow for comfort. I do not think a psychiatry admission to the mental health floor is appropriate for her. I do not think that she would benefit from this. I spoke with her daughter Isabella at length regarding residential with hospice or the residence with hospice. She is agreeable to this. I updated her MOLST form to be a DNR/DNI. I spoke with the nurse to discuss giving morphine not call the medication, but as something to help relieve her pain and to see if the patient would be agreeable to taking this so that to provide comfort in the situation where she does not have the capacity to make decisions for herself with end-stage metastatic cancer. Thank you for this consultation. I will follow along with you. PATIENT TIME: Greater than 100 minutes was spent doing the consultation, more than half the time was spent in direct patient contact. [id number]/[facility] #: [id number] REYNALDO
[2016-12-19] MEDS: OLANzapine TAB* 5 MG PO SCH (21:33)
--- NOTE | 2016-12-20 08:21 | PN ---
Subjective Date of Service: 12/20/16 Interval History: Ms. De Dios is more withdrawn today but denies complaint. She specifically denies chest pain, SOB, nausea, or abdominal pain. Family History: Unchanged from Admission Social History: Unchanged from Admission Past Medical History: Unchanged from Admission Objective Active Medications: Amlodipine Besylate (Norvasc Tab*) 5 mg PO DAILY [facility] Magnesium Oxide (Magox 400 Tab*) 400 mg PO DAILY [facility] Morphine Sulfate (Morphine Oral Concentrate*) 1 mg SL BEDTIME PRN Olanzapine (Zyprexa Tab*) 5 mg PO BEDTIME [facility] Vital Signs 12/19/16 12/19/16 12/19/16 11:21 15:25 19:22 Temperature 97.6 F 98.2 F 97.9 F Pulse Rate 97 103 86 Respiratory 17 17 17 Rate Blood Pressure 146/70 139/60 155/71 (mmHg) O2 Sat by Pulse 93 99 99 Oximetry 12/19/16 12/19/16 19:45 23:45 Temperature 97.6 F Pulse Rate 87 Respiratory 16 16 Rate Blood Pressure 144/65 (mmHg) O2 Sat by Pulse 98 Oximetry Oxygen Devices in Use Now: None Appearance: Female sitting up in chair in NAD Eyes: No Scleral Icterus Ears/Nose/Mouth/Throat: Mucous Membranes Moist Neck: Trachea Midline Respiratory: Symmetrical Chest Expansion and Respiratory Effort, Clear to Auscultation Cardiovascular: NL Sounds; No Murmurs; No JVD, No Edema Abdominal: NL Sounds; No Tenderness; No Distention Lymphatic: No Cervical Adenopathy Extremities: No Edema Skin: No Rash or Ulcers Neurological: Alert and Oriented x 3, NL Muscle Strength and Tone Nutrition: Taking PO's Result Diagrams: 12/17/16 05:40 12/17/16 05:40 Additional Lab and Data: Assess/Plan/Problems-Billing Assessment: Ms. De Dios is a 76 yo female with PMH significant for metastatic colon cancer who presented to the emergency room for evaluation of paranoia. - Patient Problems (1) Altered mental status Comment: Patient paranoid at times but calm and pleasant. Refuses all meds, prefers organic, non-pharmaceutical approaches. Psychiatric consult, offered admission to [facility], though patient's daughter prefers to have her placed in alf. (2) Colon cancer Comment: With liver, lung and peritoneal mets. Pt was on hospice services until presentation to the hospital. Patient's daughter prefers placement in NH with hospice services. (3) DNR (do not resuscitate) (4) DVT prophylaxis Comment: Pt refusing medications, encourage ambulation Status and Disposition: Inpatient. Anticipating discharge to [facility] for hospice services.
[2016-12-20] MEDS: Magnesium Oxide TAB* 400 MG PO SCH (10:06)
[2016-12-20] MEDS: amLODIPine TAB* 5 MG PO SCH (10:06)
--- NOTE | 2016-12-20 13:57 | CONSULT ---
Identification - Patient Identification Reason for Psychiatric Consultation: Incapacitating Symptoms -: Patient is a 76 year old, F admitted on 12/17/16. - [facility] Identification Employment Status: Disabled Hx Psychiatric Hospitalization: No History - Objective HPI: The patient is seen for follow up in her room. She seems to recall me and reacts in a somewhat hostile fashion, stating "I know what you're here to do. To collect more information on me so that you can go ahead with your plans to put me down on the psych tolentino." She is notified that, to my knowledge, she is now likely to be discharged from the hospital to a hospice facility. "Oh, it's the same thing. You guys are already giving me your medicines. I know it." Again, she is redirected and assured that this is factually inaccurate. The patient remains delusional, believing that her daughter's boyfriend is plotting to steal gold and silver from her and that somehow this clinician, and other involved in her care here in the hospital, are involved in the conspiracy. She continues to voice her objection to medication of any kind, psychiatric or medical. She denies SI or HI. I did speak with her daughter, Isabella, who indicates that, following a conversation with palliative career development consultant, Dr. Trejo, the decision was made to forgo psychiatric hospitalization on the [facility] in favor of placement in a residential hospice setting, where pain management and antipsychotic medication could be given surreptitiously in food or beverages. Exam Appearance: Thin Framed Hygiene: Normal Grooming: Well Kept Psychomotor Activities: Normal Exhibits Abnormal Movement: No Attitude and Relatedness: Psychotically Related Eye Contact: Good - Speech Quality: Unpressured Latencies: Normal Quantity: Terse Patient's Decription of Mood: "Fine" Observed Affect: Tense Affect Consistent with: Dysphoria Patient's Thought Process: Circumstantial Thought Content: Yes Paranoid Ideation, No Passive Wish, No Suicidal Planning, No Homicidal Ideation Experiencing Hallucinations: No, Sensorium is Clear Type of Hallucinations: Visual: No, Auditory: No, Command: No Level of Consciousness: Alert Orientation: Yes Intact, Yes Orientated to Time, Yes Orientated to Place, Yes Orientated to Person Impulse Control: Poor Insight and Judgement: Impaired Impression - Impression Clinical Impression: 76 y.o. , white female with a history of affective problems and comorbid end-stage colon cancer hospitalized on the medical unit due to several weeks of worsening paranoia and inability to keep herself safe in the community. Merits Inpatient Hospitalization: No Plan - Treatment Plan Treatment Plan: The patient remains extremely paranoid yet continues to refuse antipsychotic medication. Dr. Trejo's palliative care consult from December 18 is appreciated and we are sympathetic to the end-of-life, palliative dimensions of her case. The patient would be safe for discharge to a structured, residential hospice setting. She is suffering actively from paranoid thinking and antipsychotic therapy would be essential to her comfort care. Given her lack of capacity to make medical decisions, placing the medication in juice or food would be warranted. We recommend treatment with either dissolvable Zyprexa Zydis 2.5mg PO qdaily or dissolvable Risperdal M-Tab 0.5mg PO qdaily, as these are easily administered in food or beverages. Follow up will be with palliative care. Psychiatry appreciates the interesting consultation and will be available for further questions if they should arise. Continued Medication Management: Start Medication Medications: Current Medications Amlodipine Besylate (Norvasc Tab*) 5 mg PO DAILY [facility] Last Admin: 12/20/16 10:06 Dose: Not Given Magnesium Oxide (Magox 400 Tab*) 400 mg PO DAILY [facility] Last Admin: 12/20/16 10:06 Dose: Not Given Morphine Sulfate (Morphine Oral Concentrate*) 1 mg SL BEDTIME PRN PRN Reason: PAIN Olanzapine (Zyprexa Tab*) 5 mg PO BEDTIME [facility] Last Admin: 12/19/16 21:33 Dose: Not Given
[2016-12-20] MEDS: OLANzapine TAB* 5 MG PO SCH (21:05)
[2016-12-21] MEDS: Magnesium Oxide TAB* 400 MG PO SCH (08:14)
[2016-12-21] MEDS: amLODIPine TAB* 5 MG PO SCH (08:14)
--- NOTE | 2016-12-21 13:18 | PN ---
Subjective Date of Service: 12/21/16 Interval History: Ms. De Dios denies complaint today. She denies abdominal pain which had been her previous complaint during this hospitalization. Family History: Unchanged from Admission Social History: Unchanged from Admission Past Medical History: Unchanged from Admission Objective Active Medications: Amlodipine Besylate (Norvasc Tab*) 5 mg PO DAILY [facility] Magnesium Oxide (Magox 400 Tab*) 400 mg PO DAILY [facility] Morphine Sulfate (Morphine Oral Concentrate*) 1 mg SL BEDTIME PRN Olanzapine (Zyprexa Tab*) 5 mg PO BEDTIME [facility] Vital Signs 12/20/16 12/20/16 12/20/16 15:31 20:00 23:23 Temperature 97.8 F 97.3 F Pulse Rate 101 89 Respiratory 17 16 14 Rate Blood Pressure 160/71 155/58 (mmHg) O2 Sat by Pulse 98 96 Oximetry 12/21/16 12/21/16 08:00 08:11 Temperature 97.6 F Pulse Rate 94 Respiratory 16 16 Rate Blood Pressure 148/74 (mmHg) O2 Sat by Pulse 97 Oximetry Oxygen Devices in Use Now: None Appearance: Female sitting up in chair in NAD Eyes: No Scleral Icterus Ears/Nose/Mouth/Throat: Mucous Membranes Moist Neck: Trachea Midline Respiratory: Symmetrical Chest Expansion and Respiratory Effort Cardiovascular: No Edema Extremities: No Edema Skin: No Rash or Ulcers Neurological: Alert and Oriented x 3, NL Muscle Strength and Tone Result Diagrams: 12/17/16 05:40 12/17/16 05:40 Additional Lab and Data: Assess/Plan/Problems-Billing Assessment: Ms. De Dios is a 76 yo female with PMH significant for metastatic colon cancer who presented to the emergency room for evaluation of paranoia. - Patient Problems (1) Altered mental status Comment: Patient paranoid at times but calm and pleasant. Refuses all meds, prefers organic, non-pharmaceutical approaches. Psychiatric consult, offered admission to [facility], though patient's daughter prefers to have her placed in [facility]. Plan to offer meds in applesauce (olanzapine and morphine). May be offered surreptiously as patient lacks capacity. (2) Colon cancer Comment: With liver, lung and peritoneal mets. Pt was on hospice services until presentation to the hospital. Patient's daughter prefers placement in NH with hospice services. (3) DNR (do not resuscitate) (4) DVT prophylaxis Comment: Pt refusing medications, encourage ambulation Status and Disposition: Inpatient. Anticipating discharge to [facility] for hospice services.
[2016-12-22] MEDS: OLANzapine TAB*ODT* 5 MG PO SCH ×3 (00:10→20:16)
[2016-12-22] MEDS: amLODIPine TAB* 5 MG PO SCH (08:23)
[2016-12-22] MEDS: Magnesium Oxide TAB* 400 MG PO SCH (08:24)
[2016-12-22] MEDS ORDERED: Morphine ORAL CONCENTRATE* 5 MG/0.25 ML ORAL.SYRIN SL PRN (13:10)
--- NOTE | 2016-12-22 17:37 | PN ---
Subjective Date of Service: 12/22/16 Interval History: Patient seen and examined at bedside. Pt states that she feels tired this afternoon. Denies fever, chills, shortness of breath, chest discomfort, N/V/D. Pt states that she has pain and when asked where, she states when they take her blood pressure. Per [facility] staff Pt had a fall earlier this morning. Pt denies injury. Pt continues to be paranoid and doesn't want to take food from [facility] staff. Family History: Unchanged from Admission Social History: Unchanged from Admission Past Medical History: Unchanged from Admission Objective Active Medications: Amlodipine Besylate (Norvasc Tab*) 5 mg PO DAILY [facility] Magnesium Oxide (Magox 400 Tab*) 400 mg PO DAILY [facility] Morphine Sulfate (Morphine Oral Concentrate*) 1 mg SL Q6H PRN Reason: PAIN Olanzapine (Zyprexa * Tab Odt) 5 mg PO BEDTIME [facility] Vital Signs 12/21/16 12/21/16 12/21/16 20:00 20:07 23:10 Temperature 97.4 F Pulse Rate 95 103 Respiratory 18 16 17 Rate Blood Pressure 160/77 148/72 (mmHg) O2 Sat by Pulse 99 96 Oximetry 12/22/16 12/22/16 12/22/16 07:18 08:00 08:10 Temperature 97.3 F 97.6 F Pulse Rate 127 114 Respiratory 16 18 17 Rate Blood Pressure 178/89 165/81 (mmHg) O2 Sat by Pulse 100 98 Oximetry 12/22/16 12/22/16 12/22/16 08:41 11:26 13:51 Temperature 97.4 F Pulse Rate 91 108 Respiratory 16 17 18 Rate Blood Pressure 155/66 172/77 (mmHg) O2 Sat by Pulse 99 97 Oximetry 12/22/16 15:34 Temperature 98.2 F Pulse Rate 104 Respiratory 15 Rate Blood Pressure 133/57 (mmHg) O2 Sat by Pulse 99 Oximetry Oxygen Devices in Use Now: None Appearance: NAD, laying in bed Ears/Nose/Mouth/Throat: Mucous Membranes Moist Respiratory: Symmetrical Chest Expansion and Respiratory Effort, Clear to Auscultation Cardiovascular: NL Sounds; No Murmurs; No JVD, RRR Abdominal: NL Sounds; No Tenderness; No Distention Extremities: No Edema Skin: No Rash or Ulcers Neurological: Alert and Oriented x 3, NL Muscle Strength and Tone Nutrition: Taking PO's Result Diagrams: 12/17/16 05:40 12/17/16 05:40 Additional Lab and Data: Assess/Plan/Problems-Billing Assessment: Ms. De Dios is a 76 yo female with PMH significant for metastatic colon cancer who presented to the emergency room for evaluation of paranoia. - Patient Problems (1) Altered mental status Code(s): R41.82 - ALTERED MENTAL STATUS, UNSPECIFIED SNOMED Code(s): 942247257 Comment: - Patient paranoid at times but calm and pleasant. - Refuses all meds, prefers organic, non-pharmaceutical approaches. - Psychiatric consult, offered admission to [facility], though patient's daughter prefers to have her placed in group home. - Plan to offer meds in applesauce (olanzapine and morphine). May be offered surreptiously as patient lacks capacity. (2) Colon cancer Comment: - With liver, lung and peritoneal mets. - Pt was on hospice services until presentation to the hospital. - Patient's daughter prefers placement in NH with hospice services. (3) DVT prophylaxis Code(s): LSF3784 - SNOMED Code(s): 961390718 Comment: - Pt refusing medications, encourage ambulation (4) DNR (do not resuscitate) Status and Disposition: Inpatient. Anticipating discharge to group home for hospice services.
--- NOTE | 2016-12-23 09:43 | PN ---
Subjective Date of Service: 12/23/16 Interval History: Patient seen and examined at bedside. Pt states that she is weak and fatigued today. Pt states that she is having "iliac crest" pain this morning, and she feels that she is out of alignment. Denies fever, chills, shortness of breath, chest discomfort, N/V/D. Pt states that she is not urinating much because she isn't drinking. She reports not drinking much because she feels too weak to drink. Family History: Unchanged from Admission Social History: Unchanged from Admission Past Medical History: Unchanged from Admission Objective Active Medications: Amlodipine Besylate (Norvasc Tab*) 5 mg PO DAILY [facility] Magnesium Oxide (Magox 400 Tab*) 400 mg PO DAILY [facility] Morphine Sulfate (Morphine Oral Concentrate*) 1 mg SL Q6H PRN Reason: PAIN Olanzapine (Zyprexa * Tab Odt) 5 mg PO BEDTIME [facility] Vital Signs 12/22/16 12/22/16 12/22/16 11:26 13:51 15:34 Temperature 97.4 F 98.2 F Pulse Rate 108 104 Respiratory 17 18 15 Rate Blood Pressure 172/77 133/57 (mmHg) O2 Sat by Pulse 97 99 Oximetry 12/22/16 12/22/16 12/22/16 15:51 18:15 20:00 Temperature 98.5 F Pulse Rate 99 Respiratory 16 15 16 Rate Blood Pressure 130/61 (mmHg) O2 Sat by Pulse 97 Oximetry 12/22/16 12/23/16 12/23/16 23:41 03:52 08:15 Temperature 98.3 F 98.2 F 98.0 F Pulse Rate 82 92 92 Respiratory 12 16 16 Rate Blood Pressure 142/58 145/71 145/61 (mmHg) O2 Sat by Pulse 98 95 95 Oximetry Oxygen Devices in Use Now: None Appearance: NAD, laying in bed Eyes: No Scleral Icterus Ears/Nose/Mouth/Throat: Mucous Membranes Moist Respiratory: Symmetrical Chest Expansion and Respiratory Effort, Clear to Auscultation Cardiovascular: NL Sounds; No Murmurs; No JVD, RRR Abdominal: NL Sounds; No Tenderness; No Distention Extremities: No Edema Skin: No Rash or Ulcers Neurological: NL Muscle Strength and Tone, - - Alert and Oriented to Person and Place Nutrition: Taking PO's Result Diagrams: 12/17/16 05:40 12/17/16 05:40 Additional Lab and Data: Assess/Plan/Problems-Billing Assessment: Ms. De Dios is a 76 yo female with PMH significant for metastatic colon cancer who presented to the emergency room for evaluation of paranoia. - Patient Problems (1) Altered mental status Code(s): R41.82 - ALTERED MENTAL STATUS, UNSPECIFIED SNOMED Code(s): 091574789 Comment: - Patient paranoid at times but calm and pleasant. - Refuses all meds, prefers organic, non-pharmaceutical approaches. - Psychiatric consult, offered admission to [facility], though patient's daughter prefers to have her placed in shelter. - Plan to offer meds in applesauce (olanzapine and morphine). May be offered surreptiously as patient lacks capacity. (2) Colon cancer Comment: - With liver, lung and peritoneal mets. - Pt was on hospice services until presentation to the hospital. - Patient's daughter prefers placement in NH with hospice services. (3) DVT prophylaxis Code(s): CKK0841 - SNOMED Code(s): 133418152 Comment: - Pt refusing medications, encourage ambulation (4) DNR (do not resuscitate) Status and Disposition: Inpatient. Anticipating discharge to shelter for hospice services.
[2016-12-23] MEDS: Magnesium Oxide TAB* 400 MG PO SCH (17:23)
[2016-12-23] MEDS: amLODIPine TAB* 5 MG PO SCH (17:23)
[2016-12-23] MEDS: OLANzapine TAB*ODT* 5 MG PO SCH (19:10)
[2016-12-24] MEDS: amLODIPine TAB* 5 MG PO SCH (08:03)
[2016-12-24] MEDS: Magnesium Oxide TAB* 400 MG PO SCH (08:03)
--- NOTE | 2016-12-24 08:57 | PN ---
Subjective Date of Service: 12/24/16 Interval History: Patient seen and examined at bedside. Denies fever, chills, shortness of breath , chest discomfort, N/V/D. Pt states that she is feeling well. Family History: Unchanged from Admission Social History: Unchanged from Admission Past Medical History: Unchanged from Admission Objective Active Medications: Amlodipine Besylate (Norvasc Tab*) 5 mg PO DAILY [facility] Magnesium Oxide (Magox 400 Tab*) 400 mg PO DAILY [facility] Morphine Sulfate (Morphine Oral Concentrate*) 1 mg SL Q6H PRN Reason: PAIN Olanzapine (Zyprexa * Tab Odt) 5 mg PO BEDTIME [facility] Vital Signs 12/23/16 12/23/16 12/23/16 15:31 17:25 19:25 Temperature 98.4 F Pulse Rate 97 Respiratory 17 16 14 Rate Blood Pressure 136/69 (mmHg) O2 Sat by Pulse 96 Oximetry 12/23/16 12/23/16 19:42 20:00 Temperature 98.4 F Pulse Rate 102 Respiratory 16 16 Rate Blood Pressure 126/52 (mmHg) O2 Sat by Pulse 96 Oximetry Oxygen Devices in Use Now: None Appearance: NAD, laying in bed Ears/Nose/Mouth/Throat: Mucous Membranes Moist Respiratory: Symmetrical Chest Expansion and Respiratory Effort, Clear to Auscultation Cardiovascular: NL Sounds; No Murmurs; No JVD, RRR Abdominal: NL Sounds; No Tenderness; No Distention Extremities: No Edema Skin: No Rash or Ulcers Neurological: Alert and Oriented x 3, NL Muscle Strength and Tone Nutrition: Taking PO's Result Diagrams: 12/17/16 05:40 12/17/16 05:40 Additional Lab and Data: Assess/Plan/Problems-Billing Assessment: Ms. De Dios is a 76 yo female with PMH significant for metastatic colon cancer who presented to the emergency room for evaluation of paranoia. - Patient Problems (1) Altered mental status Code(s): R41.82 - ALTERED MENTAL STATUS, UNSPECIFIED SNOMED Code(s): 215249944 Comment: - Patient paranoid at times but calm and pleasant. - Refuses all meds, prefers organic, non-pharmaceutical approaches. - Psychiatric consult, offered admission to [facility], though patient's daughter prefers to have her placed in residential. - Plan to offer meds in applesauce (olanzapine and morphine). May be offered surreptiously as patient lacks capacity. (2) Colon cancer Comment: - With liver, lung and peritoneal mets. - Pt was on hospice services until presentation to the hospital. - Patient's daughter prefers placement in NH with hospice services. (3) DVT prophylaxis Code(s): XOM4349 - SNOMED Code(s): 901296302 Comment: - Pt refusing medications, encourage ambulation (4) DNR (do not resuscitate) Status and Disposition: Inpatient. Stable for discharge to [facility] with hospice services today.
[2016-12-24 09:41] VITALS: BP 150/73
--- NOTE | 2016-12-24 10:31 | DS ---
CC: Dr. Nesha Phipps, [place], [place]; [facility] * DATE OF ADMISSION: 12/16/2016. DATE OF DISCHARGE: 12/24/2016. AGE: 76. ATTENDING PHYSICIAN: Dr. Jacob Zuleta * (dictated by Naheed Hidalgo NP). PRIMARY CARE PHYSICIAN: Dr. Nesha Phipps. PRIMARY DIAGNOSES: 1. Metastatic colon cancer. 2. Paranoia. CONSULTATIONS WHILE IN THE HOSPITAL: 1. Dr. Gorge Kramer with Psychiatry. 2. Dr. Bernie Trejo with Palliative Care Services. STUDIES WHILE IN THE HOSPITAL: 1. Brain CT on 12/15/2016: Radiologist's impression: There is no evidence of intracranial mass or hemorrhage. Chronic ischemic white matter change is noted. 2. Chest x-ray on 12/15/2016: Radiologist's impression: Hyperinflated lung vega without definite evidence of pneumonia. 3. Repeat brain CT with contrast on 12/15/2016: Radiologist's impression: No evidence of abnormally enhancing lesions are identified. 4. Abdomen/pelvis CT on 12/16/2016: Radiologist's impression: Multiple pulmonary nodules consistent with pulmonary metastatic disease. This is predominantly in the right base. Hepatomegaly with multiple innumerable low density lesions in the liver consistent with metastatic disease. Right portal vein is not visualized. Possibility of right portal vein compression or thrombus is not excluded. Multiple peritoneal metastasis are noted with multiple omental nodules. Diffuse edema is noted with small amount of free fluid in the pelvis. There is left hydronephrosis. Etiology is unclear. There is atrophic left kidney suggesting that this may be chronic. DISCHARGE MEDICATIONS: New home medications: 1. Morphine 1 mg sublingual every 6 hours as needed for pain. 2. Zyprexa 5 mg oral daily at bedtime. Continued home medications: 1. Sodium bicarbonate. 2. Magnesium 400 mg oral daily. Discontinued home medications: Percocet 5/325. HISTORY OF PRESENT ILLNESS/HOSPITAL COURSE: Ms. De Dios is a 76-year-old female with a past medical history significant for metastatic colon cancer with metastasis to her liver, lung, and peritoneum who presented to the emergency room for evaluation of her mental status. The patient had been becoming increasingly more paranoid, feeling that the neighbor had weapons and was dealing drugs and said they were forming a militia to come get her. Her hospice nurse presented and convinced her that after the police had been called that she should come to the hospital to be at a safe place. It is to note that the patient had a hemicolectomy approximately two years ago for her obstructing colon cancer, but had refused chemotherapy and was using alternative holistic therapies, such as quantum physics. While in the emergency room, the patient had a brain CT showing no findings suggestive of metastatic disease to her brain. She had a chest x-ray showing no acute findings. She had labs that were remarkable for an elevated white count of 19.3, sodium 128, ammonia level was 54. Hospitalists were asked to evaluate the patient for admission. While in the hospital, the patient continued to be paranoid, declining medications from nursing staff as she felt they may be trying to medicate her when she did not want to be medicated. The patient was initially seen in consultation by Dr. Gorge Kramer on December 17 for evaluation of her paranoia. At that time, it was felt that the patient be transferred to [facility] with a trial of Zyprexa and therapy. The patient was then seen in consultation again by Dr. Kramer. At this point, she had become more paranoid and suspicious , was refusing to answer questions related to her situation. It was felt that she did still meet criteria to be in inpatient psychiatric hospitalization, but the [facility] was out of the patient's network and it was decided that the patient should be re- evaluated for the possibility of going back onto hospice. The patient was seen in consultation by Dr. Trejo for palliative care services on December 19. At that point, it was felt the patient was not safe to be discharge to home and that she did not have capacity to make her own medical decisions. It was recommended to encourage the patient to take pain medications to allow for her to be comfortable and it was felt that an inpatient psychiatric admission would not be appropriate for the patient as it was felt she would not benefit from it. It was felt that the patient would best be served by being placed in a [facility] with hospice services for her end-stage metastatic cancer. The patient was again seen by Dr. Kramer, who felt that due to the patient being unable to make her own medical decisions, that it was acceptable to give the patient her antipsychotic medications surreptitiously in food or beverages. The patient continued to not want to take food and beverages from nursing staff, but her daughters were able to assist with getting her Zyprexa administered over the weekend on Saturday and Saturday. The patient had been hypertensive during her stay. She was started on Amlodipine. She had not been taking that and her blood pressures were actually normotensive today and the patient has taken sublingual Morphine once during her stay. The patient rested most of the weekend and states that she feels okay this morning. Ms. De Dios is stable for discharge to [facility] for hospice care services today. Ms. De Dios is stable for discharge to [facility] today. Vital signs are as follows: Temperature 98.4, heart rate 102, respiratory rate 16, O2 sat 96 percent on room air, blood pressure 126/52. DISCHARGE PLAN: Ms. De Dios will be discharged to [facility] with hospice services. Recommend continuing the Zyprexa, offering it in food and beverages, not telling her that she is getting it. Due to the patient being unable to make her own medical decisions, that it is acceptable to give the patient her antipsychotic medications surreptitiously in food or beverages. As far as the patient's hypertension, she is normotensive today and has not been taking her Amlodipine. I recommend following her blood pressures and restarting medication if needed. ACTIVITY: As tolerated. DIET: Regular. FOLLOW-UP: The patient should be seen in follow-up by her primary care provider or provider at [facility] as needed. This is a summarized report of a complex medical history and hospital stay. For further details, please see the entire medical record. Time for this discharge was 45 minutes. CONDITION ON DISCHARGE: Stable. Reviewed by LEONIE AUGUSTIN 12/26/16 1018 [id number]/[facility] #: [id number] REYNALDO
== END 2016-12-24 12:10 | DRG 885 ==
LOC: ED 14:07 → MED 12-16 05:03 → OBSVTOIN 12-17 20:17 → MED 12-20 06:18
PROVIDERS: ADMIT Internal Medicine; ATTEND Internal Medicine
DX: F22 Delusional disorders (principal); R64 Cachexia; C78.7 Secondary malignant neoplasm of liver and intrahepatic bile duct; C78.01 Secondary malignant neoplasm of right lung; C78.6 Secondary malignant neoplasm of retroperitoneum and peritoneum; C18.7 Malignant neoplasm of sigmoid colon; Z68.1 Body mass index [BMI] 19.9 or less, adult; I10 Essential (primary) hypertension; D72.829 Elevated white blood cell count, unspecified; Z66 Do not resuscitate; Z53.29 Procedure and treatment not carried out because of patient's decision for other reasons; R10.30 Lower abdominal pain, unspecified; F41.9 Anxiety disorder, unspecified; F32.9 Major depressive disorder, single episode, unspecified; R54 Age-related physical debility; F29 Unspecified psychosis not due to a substance or known physiological condition; Z90.710 Acquired absence of both cervix and uterus
CPT/HCPCS: 36415; 70450; 70460; 71020; 74178; 80048; 80053; 81003; 82140; 83605; 84443; 84484; 85025; A9270-GY; G0378; Q9967